=== PATIENT | male | born 2000 | race Caucasian/White ===

== ENCOUNTER 2025-04-09 09:34 | Emergency (ER) | payer OTHER ==
[~2025-04-09] VITALS: Ht 180.3 cm; Wt 88.2 kg
[2025-04-09 11:39] VITALS: BP 131/63; TEMP 98; O2SAT 99
[2025-04-09] MEDS: IBUPROFEN 600 MG TAB PO ONE (11:40)
== END 2025-04-09 11:47 | disposition home or self-care (01) ==
LOC: M ED 09:34
DX: S93.402A Sprain of unspecified ligament of left ankle, initial encounter (principal); X50.0XXA Overexertion from strenuous movement or load, initial encounter; Y92.89 Other specified places as the place of occurrence of the external cause; Y93.02 Activity, running; Y99.1 Military activity; Z88.1 Allergy status to other antibiotic agents